=== PATIENT | female | born 1980 | race Caucasian/White ===

== ENCOUNTER → 2018-08-28 | Outpatient (REF) | payer OTHER ==
[2018-08-28 14:12] LABS: BACTERIA, URINE AUTO 1+ (NEGATIVE); MUCUS, URINE SMALL (NEGATIVE); RBC, URINE AUTO 3 /HPF (0-3); SQUAMOUS EPITHELIAL CELL UR AU 4 /HPF (0-6); WBC, URINE AUTO 2 /HPF (0-3)
[2018-08-28 15:17] LABS: CHLAMYDIA DNA AMPLIFICATION NEGATIVE (NEGATIVE); GC DNA AMPLIFICATION NEGATIVE (NEGATIVE)
== END ==
LOC: M LAB REF 13:24
PROVIDERS: ATTEND Physician Assistant
DX: N76.0 Acute vaginitis (principal)

== ENCOUNTER → 2019-01-06 | Outpatient (REF) | payer OTHER | LOC: M LAB REF 19:35 | PROVIDERS: ATTEND Physician Assistant | DX: R30.0 Dysuria (principal) ==

== ENCOUNTER 2019-03-30 12:11 | Emergency (ER) | payer OTHER ==
[~2019-03-30] VITALS: Ht 172.7 cm; Wt 66.0 kg
[2019-03-30 13:46] LABS: BASO # 0.1 10^3/uL (0.0-0.2); BASO % 0.5 % (0.0-1.0); EOS % 0.3 % (0.0-3.0); HEMATOCRIT 40.4 % (36.0-47.0); HEMOGLOBIN 13.7 g/dl (12.0-15.5); LYMPH # 1.1 10^3/uL (1.5-4.5); LYMPH % 11.2 % (24.0-44.0); MEAN CORPUSCULAR HEMOGLOBIN 29.9 pg (27.0-33.0); MEAN CORPUSCULAR HGB CONC 33.9 g/dl (32.0-36.5); MEAN CORPUSCULAR VOLUME 88.2 fl (80.0-96.0); MONO # 0.4 10^3/uL (0.0-0.8); MONO % 3.8 % (0.0-5.0); NEUTROPHILS # 8.1 10^3/uL (1.8-7.7); PLATELET COUNT, AUTOMATED 300 10^3/uL (150-450); RED BLOOD COUNT 4.58 10^6/uL (4.00-5.40); WHITE BLOOD COUNT 9.6 10^3/uL (4.0-10.0)
[2019-03-30 14:03] LABS: BLOOD UREA NITROGEN 14 MG/DL (7-18); CALCIUM LEVEL 8.8 MG/DL (8.5-10.1); CARBON DIOXIDE LEVEL 25 MEQ/L (21-32); CHLORIDE LEVEL 108 MEQ/L (98-107); CREATININE FOR GFR 0.84 MG/DL (0.55-1.30); GLOMERULAR FILTRATION RATE > 60.0 (>60); GLUCOSE, FASTING 98 MG/DL (70-100); POTASSIUM SERUM 4.3 MEQ/L (3.5-5.1); SODIUM LEVEL 140 MEQ/L (136-145)
[2019-03-30 16:56] LABS: HCG, SERUM QUANTITATIVE 12 MIU/ML
--- NOTE | 2019-03-30 17:23 | REPVR ---
EXAM: US First Trimester, Transabdominal and US , Transvaginal EXAM DATE/TIME: 03/30/2019 5:08 PM CLINICAL HISTORY: 38 years old, female; Lmp or gestational age (in weeks): 4w4d; Other: Vag bleeding; ; Additional info: Vaginal bleeding, unsure how far along TECHNIQUE: Imaging protocol: Real-time transabdominal obstetrical ultrasound of the maternal pelvis and a first trimester , less than 14 weeks 0 days, with image documentation. Transvaginal imaging was used for better evaluation of the fetus and adnexa. COMPARISON: No relevant prior studies available. FINDINGS: GESTATION: Gestation: No yolk sac demonstrated. Heart rate: No cardiac activity demonstrated. BIOMETRY: Estimated gestational age: 4 weeks 4 days using LMP of 02/25/2019 MATERNAL: Uterus: Uterus measures 10.6 x 6.1 x 7.2 cm. Irregular fluid collection in the uterine fundus measures 2.6 x 1.5 x 2.2 cm. focus is associated with a peripheral hyperechoic rind and increased blood flow on Doppler. No definite pole demonstrated. Cervix: Unremarkable. Right adnexa: Right ovary measures 2.8 x 1.1 0.5 cm. Resistive index 0.58 Left adnexa: Left ovary measures 3.4 x 3.1 x 3.7 cm. Resistive index 0.61. 2.5 x 2.2 x 2.6 cm cyst demonstrated in the left ovary. Intraperitoneal: No intraperitoneal free fluid. IMPRESSION: Irregular fluid collection in the uterine fundus surrounded by an echogenic rind with evidence of a pole, yolk sac or cardiac activity in this patient who is 4 weeks 4 days based on LMP. Followup beta hCG levels as well as ultrasound suggested to distinguish between early failure, early IUP, and ectopic . Electronically signed by: Maximus Dolan On 03/30/2019 17:23:53 PM
[2019-03-30 17:44] VITALS: BP 126/78
== END 2019-03-30 18:02 | disposition home or self-care (01) ==
LOC: M ED 12:11
DX: O03.4 Incomplete spontaneous abortion without complication (principal); Z88.2 Allergy status to sulfonamides; Z88.8 Allergy status to other drugs, medicaments and biological substances

== ENCOUNTER → 2019-09-04 | Outpatient (REF) ==
[2019-09-04 13:10] LABS: RUBELLA IgG QUALITATIVE IMMUNE (IMMUNE)
== END ==
LOC: M LAB 11:40
PROVIDERS: ATTEND Nurse Practitioner Adult Health
DX: Z02.89 Encounter for other administrative examinations (principal)

== ENCOUNTER 2019-10-04 18:07 | Emergency (ER) | payer OTHER ==
[~2019-10-04] VITALS: Ht 172.7 cm; Wt 74.3 kg
[2019-10-04] MEDS ORDERED: PREN29TA4 PO (18:52)
--- NOTE | 2019-10-04 20:10 | REPVR ---
PROCEDURE INFORMATION: Exam: US First Trimester, Transabdominal Exam date and time: 10/04/2019 7:40 PM Age: 38 years old Clinical indication: Lmp or gestational age (in weeks): Lmp 07/10/19; Antepartum complications; Other: [place] a gush of fluid; ; Additional info: 12 wks, loss of fluid TECHNIQUE: Imaging protocol: Real-time transabdominal obstetrical ultrasound of the maternal pelvis and a first trimester , less than 14 weeks 0 days, with image documentation. COMPARISON: No relevant prior studies available. FINDINGS: GESTATION: Gestation: Single gestational sac within the uterus. Heart rate: heart rate is 165 bpm. Placenta: No subchorionic hemorrhage demonstrated. Anterior placenta. Amniotic fluid: Normal amniotic fluid volume. BIOMETRY: Estimated gestational age: Gestational age based on crown-rump length is 13 weeks 1 day. Gestational age based on LMP of 07/10/2019 is 12 weeks 2 days. [place]-Rump length: Single living fetus demonstrated with a crown-rump length of 6.8 cm. Estimated due date: NESHA using ultrasound is 04/10/2020. MATERNAL: Uterus: Unremarkable. Cervix: Unremarkable. Measures 3.1 cm. No funneling or bulging of membranes. Right adnexa: Unremarkable. Left adnexa: Unremarkable. Intraperitoneal: No intraperitoneal free fluid. IMPRESSION: Unremarkable scan at 13 weeks 1 day based on ultrasound measurements. Detailed structural survey can be performed between 19-20 weeks if clinically desired. Electronically signed by: Maximus Dolan On 10/04/2019 20:10:06 PM
[2019-10-04 20:23] VITALS: BP 120/73
[2019-10-04 20:42] LABS: CHLAMYDIA DNA AMPLIFICATION NEGATIVE (NEGATIVE); GC DNA AMPLIFICATION NEGATIVE (NEGATIVE)
== END 2019-10-04 20:25 | disposition home or self-care (01) ==
LOC: M ED 18:07
DX: O34.61 Maternal care for abnormality of vagina, first trimester (principal); O09.521 Supervision of elderly multigravida, first trimester; Z3A.12 12 weeks gestation of pregnancy; Z79.899 Other long term (current) drug therapy; Z88.8 Allergy status to other drugs, medicaments and biological substances

== ENCOUNTER 2020-03-23 01:45 | Outpatient (CLI) | payer OTHER ==
[~2020-03-23 01:45] MED LIST: PREN29TA4 PO
[2020-03-23] MEDS ORDERED: LIDOCAINE 5% (LIDODERM) PATCH ONE (01:46)
[2020-04-07] MEDS ORDERED: KEFL500C17 PO (14:59)
== END 2020-03-23 03:10 | disposition home or self-care (01) ==
LOC: M LDO 01:45
PROVIDERS: ATTEND Obstetrics & Gynecology
DX: O99.713 Diseases of the skin and subcutaneous tissue complicating pregnancy, third trimester (principal); L90.5 Scar conditions and fibrosis of skin; R10.31 Right lower quadrant pain; Z3A.36 36 weeks gestation of pregnancy

== ENCOUNTER 2020-04-08 05:35 | Inpatient (IN) | payer OTHER ==
[~2020-04-08] VITALS: Ht 172.7 cm; Wt 88.0 kg
[~2020-04-08 05:35] MED LIST changes: +KEFL500C17 PO
[2020-04-08] MEDS ORDERED: LACTATED RINGER'S 1000 ML IV STA (05:53)
[2020-04-08] MEDS ORDERED: LR 1,000 ML IV SCH ×3 (05:53→11:52)
[2020-04-08 06:21] LABS: HEMATOCRIT 34.8 % (36.0-47.0); HEMOGLOBIN 11.8 g/dl (12.0-15.5); MEAN CORPUSCULAR HGB CONC 33.9 g/dl (32.0-36.5); MEAN CORPUSCULAR VOLUME 88.5 fl (80.0-96.0); PLATELET COUNT, AUTOMATED 317 10^3/uL (150-450); RED BLOOD COUNT 3.93 10^6/uL (4.00-5.40); WHITE BLOOD COUNT 10.5 10^3/uL (4.0-10.0)
[2020-04-08] MEDS ORDERED: ceFAZolin 2 GM/D5W 50 ML IV BAG (J0690 PER 500MG) As Ordered ONE (08:14)
[2020-04-08] MEDS ORDERED: AZITHROMYCIN INJ 500MG VIAL (J0456 PER 500MG) As Ordered ONE (08:15)
[2020-04-08] MEDS ORDERED: ceFAZolin SOD 2 GM in IV 1 EA IV ONE (08:15)
[2020-04-08] MEDS ORDERED: BUPIVACAINE HCL 0.25% 10ML VIAL SC ONE (08:15)
[2020-04-08] MEDS ORDERED: AZITHROMYCIN INJ 500 MG, VIAL MATE ADAPTER 1 EACH in D5W 250 ML IV ONE (08:15)
[2020-04-08] MEDS ORDERED: BICITRA 30ML SOLN UDC PO ONE (08:15)
[2020-04-08] MEDS: PRENATAL VITAMINS CHEWABLE TABLET PO SCH (09:00)
[2020-04-08] MEDS ORDERED: NALBUPHINE HCL 10 MG/ML AMP (J2300) IV PRN (09:07)
[2020-04-08] MEDS ORDERED: ONDANSETRON 4MG/2ML VIAL IV PRN ×2 (09:07→11:30)
[2020-04-08] MEDS ORDERED: diphenhydrAMINE 50MG/ML VIAL (J1200) IV PRN (09:07)
[2020-04-08] MEDS ORDERED: METOCLOPRAMIDE INJ 10MG/2ML VIAL (J2765 PER 1) IV PRN ×2 (09:07→11:30)
[2020-04-08] MEDS ORDERED: NALOXONE INJ 0.4MG/1ML VIAL (J2310 PER 1MG) IV PRN ×2 (09:07)
[2020-04-08] MEDS ORDERED: MORPHINE PRES-FREE INJ 10 MG/10 ML VIAL (J2274) As Ordered ONE (09:26)
[2020-04-08] MEDS ORDERED: KETOROLAC 60MG 2ML VIAL As Ordered ONE (09:26)
[2020-04-08] MEDS ORDERED: ONDANSETRON 4MG/2ML VIAL As Ordered ONE (09:26)
[2020-04-08] MEDS ORDERED: ePHEDrine SULFATE 25 MG/5 ML(5MG/ML) SYRINGE As Ordered ONE (09:26)
[2020-04-08] MEDS ORDERED: dexameTHASONE 4 MG/ML 1ML VIAL (J1100 PER 1MG) As Ordered ONE (09:26)
[2020-04-08] MEDS ORDERED: PHENYLephrine HCL 500 MCG/5 ML (100MCG/ML) SYRINGE (J2370) As Ordered ONE (09:26)
[2020-04-08] MEDS ORDERED: OXYTOCIN 30 UNITS IN 0.9% NaCl 500ML IV BAG (J2590) As Ordered ONE (09:26)
[2020-04-08] MEDS ORDERED: OXYTOCIN INJ 10 UNITS/ML VIAL (J2590) As Ordered ONE (09:26)
[2020-04-08 10:17] LABS: CORD GAS ABE V -2.7; CORD GAS HCO3 V 23.5 MEQ/L; CORD GAS O2 SAT V 72.2 %; CORD GAS PCO2 V 46.1 mmHg; CORD GAS PH V 7.326 UNITS; CORD GAS PO2 V 30.8 mmHg; CORD GAS SBC V 21.5 MEQ/L
[2020-04-08 10:19] LABS: CORD GAS PCO2 A 61.2 mmHg; CORD GAS PH A 7.264 UNITS; CORD GAS PO2 A 17.7 mmHg
[2020-04-08 10:20] LABS: CORD GAS ABE A -1.4; CORD GAS HCO3 A 27.1 MEQ/L; CORD GAS O2 SAT A 34.3 %; CORD GAS SBC A 21.7 MEQ/L
[2020-04-08] MEDS ORDERED: PERCOCET 5MG/325MG TAB PO PRN (11:30)
[2020-04-08] MEDS ORDERED: fentaNYL 100 MCG/2 ML INJECTION (J3010) IV PRN (11:30)
[2020-04-08] MEDS ORDERED: MEPERIDINE INJ 25 MG/ML VIAL (J2175) IV PRN (11:30)
[2020-04-08 11:45] VITALS: BP 101/58
[2020-04-08] MEDS ORDERED: ACETAMINOPHEN 500 MG TAB PO PRN (12:00)
[2020-04-08] MEDS ORDERED: OXYTOCIN DRIP 30 UNITS in IV 1 EA IV ONE (12:00)
[2020-04-08] MEDS ORDERED: RHOGAM 300 MCG (1500 IU) INJ (J2790) IM SCH (12:00)
[2020-04-08] MEDS ORDERED: MEASLES,MUMPS,RUBELLA VACCINE INJ (MMR-II) (90707) SC SCH (12:00)
[2020-04-08] MEDS ORDERED: MOM 30ML SUSPENSION UDC PO PRN (12:00)
[2020-04-08] MEDS ORDERED: OXYTOCIN INJ 10 UNITS/ML VIAL (J2590) IV ONE (12:00)
[2020-04-08] MEDS ORDERED: ANUSOL HC CREAM 30GM TOP PRN (12:00)
[2020-04-08] MEDS ORDERED: METHYLERGONOVINE MALEATE 0.2 MG TAB PO PRN (12:00)
[2020-04-08] MEDS ORDERED: DOCUSATE SODIUM 100 MG CAP PO PRN (12:00)
[2020-04-08 12:15] VITALS: BP 94/59
[2020-04-08 13:15] VITALS: BP 106/59
[2020-04-08 14:15] VITALS: BP 109/57
[2020-04-08] MEDS: KETOROLAC 30 MG/ML 1ML VIAL IV SCH ×2 (16:02→22:18)
[2020-04-08 18:00] VITALS: BP 120/67
[2020-04-08 22:00] VITALS: BP 108/64
[2020-04-09 01:53] VITALS: BP 90/50
[2020-04-09] MEDS: KETOROLAC 30 MG/ML 1ML VIAL IV SCH (03:57)
[2020-04-09 06:01] VITALS: BP 99/55
[2020-04-09 06:58] LABS: HEMATOCRIT 29.5 % (36.0-47.0); HEMOGLOBIN 9.7 g/dl (12.0-15.5); MEAN CORPUSCULAR HEMOGLOBIN 29.8 pg (27.0-33.0); MEAN CORPUSCULAR HGB CONC 32.9 g/dl (32.0-36.5); MEAN CORPUSCULAR VOLUME 90.5 fl (80.0-96.0); PLATELET COUNT, AUTOMATED 261 10^3/uL (150-450); RED BLOOD COUNT 3.26 10^6/uL (4.00-5.40); WHITE BLOOD COUNT 11.7 10^3/uL (4.0-10.0)
[2020-04-09 10:00] VITALS: BP 111/59
[2020-04-09] MEDS: PRENATAL VITAMINS CHEWABLE TABLET PO SCH (10:14)
[2020-04-09] MEDS ORDERED: IBUPROFEN 800 MG TAB PO PRN (12:00)
[2020-04-09] MEDS: PERCOCET 5MG/325MG TAB PO PRN (12:02)
[2020-04-09 14:00] VITALS: BP 94/59
[2020-04-09 18:00] VITALS: BP 104/58
[2020-04-09 22:08] VITALS: BP 119/71
[2020-04-10 06:08] VITALS: BP 103/59
--- NOTE | 2020-04-10 08:39 | IPNPDOC ---
Progress Note Date of Service: Apr 10, 2020 Day#: 2 Progress Note SUBJECT: Ms. Ramos is a 39yo POD2 s/p without complications. She has been ambulating, voiding spontaneously without issue and tolerating regular diet. Breast feeding without issue. Reports lochia is like a normal period. Patient is ambulating well. Denies any pain. Voiding and stooling without difficulty. OBJECTIVE: VITAL SIGNS: Within normal limits, afebrile. Alert and oriented times three. Breath sounds clear to auscultation. Heart rate: Regular rate and rhythm, no murmurs, rubs or gallops. Abdomen: Fundus firm at U-2. Soft, NTTP. Pfannenstiel incision is covered with optifoam and is without strikethrough [Minimal] lochia. ASSESSMENT: Ms. Ramos is a 39yo POD2 s/p without complications. Vitals within normal limits, afebrile, hemodynamically stable with no evidence of infection. Good UOP. PLAN: 1. Discharge to home today. 2. Tylenol and Motrin for pain. oxycodone for breakthrough pain 3. Encourage breast feeding and ambulation. 4. unsure what she would like for contraception, discussed options, will decide at 6wk PP visit, educated on risks of close interval 5. Routine PP visit in 6 weeks in clinic, plan for incision check in 2wk 6. Discussed return precautions at length. VS, I&O, 24H, Fishbone Vital Signs/I&O Vital Signs Date Time Temp Pulse Resp B/P (MAP) Pulse Ox O2 Delivery O2 Flow Rate FiO2 04/10/20 06:08 98.1 74 18 103/59 (74) 98 04/09/20 14:00 Room Air KATIUSKA AYERS DO Apr 10, 2020 08:39
[2020-04-10] MEDS ORDERED: DOCU100C16 PO (08:42)
[2020-04-10] MEDS ORDERED: PERCOCET PO (08:42)
[2020-04-10] MEDS ORDERED: ACET-683 PO (08:42)
[2020-04-10] MEDS ORDERED: IBUP80TA PO (08:42)
[2020-04-10] MEDS: PRENATAL VITAMINS CHEWABLE TABLET PO SCH (08:44)
[2020-04-10] MEDS: PERCOCET 5MG/325MG TAB PO PRN (16:07)
--- NOTE | 2020-05-04 09:36 | RO ---
DATE OF OPERATION: 04/08/2020 PREOPERATIVE DIAGNOSIS: Previous section, repeat section x4. POSTOPERATIVE DIAGNOSIS: Previous section, repeat section x4. PROCEDURE: Repeat section. ANESTHESIA: Spinal plus local anesthetic for intraperitoneal procedures. ESTIMATED BLOOD LOSS: 400 mL. SURGEON: Derek Cooper MD PRODUCT DEVELOPMENT ENGINEER: Armando Wasserman DO for extraction, retraction, visualization without which the procedure could not be completed. After adequate timeout; prepped and draped in supine position; Wilburn catheter in the bladder draining clear urine. Acetaminophen suppository 1300 mg per rectum. Sequentials in place. Antibiotics appropriately preoperatively. A Pfannenstiel incision was made through the previous one, passing through abdominal layers and securing hemostasis. In opening the peritoneal cavity, there were massive adhesions from the bladder to the anterior abdominal wall from the anterior abdominal wall to the anterior aspect of the uterus. These were cleared away in order to be able to visualize the lower segment, which there was noted a uterine dehiscence of the lower uterine segment. Very thin; we could see amniotic fluid and hair floating through there. An artificial rupture of membranes (ARM) was done draining clear liquor, moderate amount. We delivered a live- female weighing 8 pounds 11 ounces, Apgars of 8 and 9 in one and five minutes respectively. Arterial pH was 7.26, base excess -1.4, venous pH 7.32, base excess -2.7. The placenta was manually removed. Three vessels of thecord, membranes and tissues intact. The uterus was swept clean with chelsi down under Pitocin. The lower segment was oversewn in the usual fashion in two layers attempting to imbricate the second layer. There was no availability of peritoneum to reperitonealize as there were adhesions even up to the fundus. With good hemostasis and instrument and pad count correct, we were again not able to visualize the ovaries and tubes because of the adhesions, and with instrument and pad count correct, the abdomen was closed with running stitch for the peritoneum, same for the fascia, interrupted for subcutaneous, Dexon to the skin. Marcaine 0.25% 10 mL subcutaneous and a Mepore dressing was placed and the patient was then taken to recovery in good condition. [facility] MED[facility] CENTERAudra
--- NOTE | 2020-05-16 11:43 | HPE ---
DATE OF SERVICE: March 30, 2020. HISTORY OF PRESENT ILLNESS: This lady is a 38-year-old 4, para 3, LMP July 10, 2019, EDC May 01, 2020 for elective repeat section times 4 on April 08, 2020. PAST HISTORY: * 2001 at 41 weeks non-reassuring heart tones, primary section, 7 pounds 13 ounces. * 2003 at 39 weeks repeat section, 7 pounds 11 ounces, noted on the Operative Note massive abdominal peritoneal adhesions and bladder flap was adherent to the anterior abdominal wall. * 2007 at 39 weeks elective repeat section, live 7 pounds, 4 ounces, again adhesions to the anterior abdominal wall, difficulty in identifying the plane of surgery. PAST OTHER OPERATIVE PROCEDURES: * Breast augmentation. * Abdominoplasty. * Ora teeth. * Appendectomy which was not ruptured. * She is also an AMA at 39 years of age. PHYSICAL EXAMINATION: Blood pressure today was 115/65, respirations 18, pulse was 87 and she is afebrile. Weight was 192 pounds, initial BMI was 22.96. On examination in no acute distress. Symphysis fundus height is 38. She has a lower transverse scar from her abdominoplasty, very thickened doughy type feeling of the abdominal wall. She has an umbilicus which has been relocated as well as this high transverse incision. heart rates were 142 [id number]. The baby was in the vertex presentation. The rest of the examination was unremarkable. Normocephalic, atraumatic. Neck full range of motion. Pupils equal and reactive to light. Distal pulses symmetric. No evidence of DVT, PE or superficial phlebitis. Chest was clear bilaterally at the bases, no wheezes or rhonchi. No CVA tenderness. Abdomen: Soft, 4 quadrant bowel sounds are noted. She has no rashes, lesions or pruritus, no arthralgia, myalgia, no complaint of joint pain, no complaint of cough, wheezes, shortness of breath or dyspnea on exertion. PAST GYNECOLOGICAL HISTORY: Unremarkable. PAST SURGICAL HISTORY: As mentioned in the HPI. RISK FACTORS: She is an AMA, previous section times 4 and she is on Macrobid for recurring and frequent UTIs. We discussed the risks and benefits of section including hemorrhage, infection, perforation, , re-operation, blood transfusion, the risk of hysterectomy, risk of bowel obstruction and bowel perforation secondary to reviewing the past 2 surgical procedures with extensive adhesions and scarring. Also the risk of injury at the time of delivery and admission to the NICU. PLAN: After expressing understanding of all the risks and complications patient signed a Consent Form. All questions were answered, 25 minute discussion with physical examination. Patient is going to get medications dispensed at [place], tow picker prior to admission to the hospital and COVID testing the day before. Again patient expressed understanding of the Consent Form and the surgical intervention, signed the Consent Form. All questions were answered. ASHLEY
== END 2020-04-10 21:28 | disposition home or self-care (01) | DRG 773 ==
LOC: M LDI 05:35 → M OBS 11:34
PROVIDERS: ADMIT Obstetrics & Gynecology; ATTEND Obstetrics & Gynecology
PROC: 10D00Z1 Extraction of Products of Conception, Low, Open Approach (ICD-10-PCS; principal; 2020-04-08 07:30)
DX: O34.211 Maternal care for low transverse scar from previous cesarean delivery (principal); Z37.0 Single live birth; O09.523 Supervision of elderly multigravida, third trimester; Z3A.39 39 weeks gestation of pregnancy

== ENCOUNTER → 2020-07-29 | Outpatient (REF) | payer OTHER ==
[~2020-07-29] MED LIST changes: +ACET-683 PO; +DOCU100C16 PO; +IBUP80TA PO; +PERCOCET PO
[2020-07-29 18:09] LABS: APPEARANCE, URINE CLEAR (CLEAR); BACTERIA, URINE AUTO NEGATIVE (NEGATIVE); BILIRUBIN, URINE AUTO NEGATIVE (NEGATIVE); BLOOD, URINE BLOOD NEGATIVE (NEGATIVE); COLOR, URINE AMBER (YELLOW); GLUCOSE, URINE (UA) AUTO NEGATIVE (NEGATIVE); KETONE, URINE AUTO NEGATIVE (NEGATIVE); LEUKOCYTE ESTERASE, URINE AUTO NEGATIVE (NEGATIVE); MUCUS, URINE SMALL (NEGATIVE); NITRITE, URINE AUTO POSITIVE (NEGATIVE); PROTEIN, URINE AUTO 1+ mg/dL (NEGATIVE); RBC, URINE AUTO 3 /HPF (0-3); SPECIFIC GRAVITY URINE AUTO 1.025 (1.002-1.035); SQUAMOUS EPITHELIAL CELL UR AU 1 /HPF (0-6); WBC, URINE AUTO 1 /HPF (0-3)
== END ==
LOC: M SMT 17:01
PROVIDERS: ATTEND Nurse Practitioner Women's Health
DX: N39.0 Urinary tract infection, site not specified (principal)
CPT/HCPCS: 81001; 87086; G0463

== ENCOUNTER → 2020-08-15 | Outpatient (CLI) | payer OTHER ==
--- NOTE | 2020-08-15 15:47 | REP ---
INDICATION: UTI, SITE NOT SPECIFIC COMPARISON: None TECHNIQUE: Real time rivas scale ultrasound examination using curved array transducer. FINDINGS: Bilateral kidneys are normal in contour, size, echogenicity, and reniform shape without hydronephrosis, nephrolithiasis, renal mass lesion or perinephric stranding/fluid. The right kidney measures 11.4 x 5.4 x 4.3 cm with incidental 1 cm simple upper pole cyst noted. Left kidney measures 11.5 x 6.6 x 6.3 cm. IMPRESSION: 1. Normal appearance of the bilateral kidneys. Incidental simple 1 cm right renal cyst noted. <Electronically signed by Shaun Hwang > 08/15/20 [id number]
--- NOTE | 2020-08-15 15:48 | REP ---
INDICATION: UTI, SITE NOT SPECIFIC COMPARISON: None TECHNIQUE: Real time B-mode ultrasound examination using curved array transducer. FINDINGS: Bladder demonstrates small amount of nonspecific debris and is otherwise normal in appearance without wall thickening or mass lesion. Bilateral ureteral jets are identified. Prevoid bladder measures 9.4 x 10.5 x 9.5 cm (612 cc). Postvoid bladder measures 2 4.1 x 6.9 x 3.0 cm (55 cc). Postvoid residual: 9% IMPRESSION: 1. Small amount of debris is nonspecific. 2. Postvoid residual equals 9%. <Electronically signed by Shaun Hwang > 08/15/20 [id number]
== END ==
LOC: M RAD 15:10
PROVIDERS: ATTEND Nurse Practitioner Women's Health
DX: N39.0 Urinary tract infection, site not specified (principal); N28.1 Cyst of kidney, acquired